=== PATIENT | female | born 1985 | race American Indian/Alaskan Native ===

== ENCOUNTER 2021-11-21 17:39 | Emergency (ER) | payer OTHER ==
--- NOTE | 2021-11-21 20:23 | XRay Report ---
XR chest routine 2V INDICATION / CLINICAL INFORMATION: sob and fever. COMPARISON: None available. FINDINGS: Findings in the chest are accentuated by body habitus and phase of inspiration. SUPPORT DEVICES: None. HEART /PULMONARY VASCULATURE: No significant abnormality. LUNGS / PLEURA: No acute pulmonary or pleural abnormality. No pneumothorax. ADDITIONAL FINDINGS: No significant additional findings. IMPRESSION: 1. No acute findings. Signer Name: Suleman Oconnell MD Signed: 11/21/2021 8:18 PM Workstation Name: [id number]
[2021-11-22 06:09] LABS: Bilirubin,Urine NEG (Negative); Blood,Urine MOD (Negative); Color,Urine Yellow (Yellow)
[2021-11-22 06:13] LABS: Bacteria,Urine 1+ /HPF (Negative); Mucus,Urine 1+ /HPF
[2021-11-22 06:19] LABS: Alanine Aminotransferase 8 units/L (7-56); Albumin 3.9 g/dL (3.9-5); BUN/Creatinine Ratio 8; Blood Urea Nitrogen 8 mg/dL (7-17); Calcium 8.9 mg/dL (8.4-10.2); Hemolysis Index 3
[2021-11-22 07:50] LABS: Basophils # (Auto) 0.1 K/mm3 (0.0-0.1); Basophils % (Auto) 0.5 % (0.0-1.8); Eosinophils # (Auto) 0.1 K/mm3 (0.0-0.4); Eosinophils % (Auto) 1.4 % (0.0-4.3); Hematocrit 32.6 % (30.3-42.9); Hemoglobin 10.3 gm/dl (10.1-14.3); Lymphocytes # (Auto) 2.2 K/mm3 (1.2-5.4); Lymphocytes % (Auto) 22.5 % (13.4-35.0); Mean Corpuscular HGB Conc 32 % (30-34); Mean Corpuscular Volume 77 fl (79-97); Monocytes # (Auto) 0.7 K/mm3 (0.0-0.8); Monocytes % (Auto) 6.5 % (0.0-7.3); Platelet Count 362 K/mm3 (140-440); Red Blood Count 4.27 M/mm3 (3.65-5.03); Red Cell Distribution Width 16.9 % (13.2-15.2)
--- NOTE | 2021-11-22 07:55 | Cat Scan Report ---
CT ABDOMEN AND PELVIS WITHOUT CONTRAST INDICATION / CLINICAL INFORMATION: r/o obstruction renal stone. TECHNIQUE: Axial CT images were obtained through the abdomen and pelvis without IV contrast. All CT scans at this location are performed using CT dose reduction for ALARA by means of automated exposure control. COMPARISON: None available. FINDINGS: LOWER CHEST: No significant abnormality. LIVER: No significant abnormality. GALLBLADDER: No significant abnormality. BILE DUCTS: No significant abnormality. PANCREAS: No significant abnormality. SPLEEN: No significant abnormality. ADRENALS: No significant abnormality. RIGHT KIDNEY / URETER: Absent. LEFT KIDNEY / URETER: No significant abnormality. STOMACH / SMALL BOWEL: No significant abnormality. COLON: No significant abnormality. APPENDIX: Nonvisualized. PERITONEUM: No free fluid. No free air. No fluid collection. LYMPH NODES: No significant adenopathy. VASCULAR STRUCTURES: No significant abnormality. URINARY BLADDER: No significant abnormality. REPRODUCTIVE ORGANS: Probable small cyst left ovary. ADDITIONAL FINDINGS: None. SKELETAL SYSTEM: No significant abnormality. IMPRESSION: 1. Negative for obstruction or localized inflammation. 2. Previous right nephrectomy. 3. Probable small cyst left ovary. Signer Name: Praneeth Price MD Signed: 11/22/2021 7:50 AM Workstation Name: [id number]
[2021-11-22] MEDS ORDERED: PROPRANOLOL 10 MG TAB PO ONE (08:04)
[2021-11-22] MEDS ORDERED: SODIUM CHLORIDE 0.9% 1000 ML 1,000 ML IV ONE (08:16)
[2021-11-22] MEDS ORDERED: MORPHINE 4 MG/1 ML INJ IV ONE (08:16)
[2021-11-22] MEDS ORDERED: ONDANSETRON 4 MG/2 ML INJ IV ONE (08:16)
[2021-11-22] MEDS ORDERED: PROPRANOLOL 40 MG TAB PO SCH (08:30)
--- NOTE | 2021-11-22 08:54 | Emergency Department Report ---
ED General Adult HPI - General Chief complaint: Upper Respiratory Infection Stated complaint: SEVER ABDOMINAL PAIN, NUMBNESS IN FINGERS Time Seen by Provider: 11/22/21 07:23 Source: patient Mode of arrival: Ambulatory Limitations: No Limitations - History of Present Illness Initial comments: 35-year-old female past medical history of a brain cyst diagnosed in , endometriosis, PCOS, renal disease "born with 1 kidney" and a heart murmur. Patient reports to the ER with complaints of abdominal pain all over with nausea and vomiting that started yesterday around 10 AM. Patient states that initially when she came to the ER her pain was a 10 out of 10 the pain has now decreased to 6 out of 10. Patient denies diarrhea. Patient also reports that headache reports she has not taken her propanolol 80 mg today for her migraines. Patient denies chest pain, shortness of breath, weakness, dizziness. No other acute concerns at this time. Severity scale (0 -10): 9 - Related Data Previous Rx's Medication Instructions Recorded Last Taken Type Cefuroxime Axetil [Cefuroxime] 500 mg PO BID 7 Days #14 tab 11/22/21 Unknown Rx Ondansetron [Zofran Odt] 4 mg PO Q12HR PRN 4 Days #8 11/22/21 Unknown Rx tab.rapdis traMADoL [Ultram 50 MG tab] 50 mg PO Q6HR PRN 3 Days #10 tablet 11/22/21 Unknown Rx Allergies Allergy/AdvReac Type Severity Reaction Status Date / Time iodine Allergy Anaphylaxis Verified 11/21/21 18:27 shellfish derived Allergy Anaphylaxis Verified 11/21/21 18:26 ED Review of Systems ROS: Stated complaint: SEVER ABDOMINAL PAIN, NUMBNESS IN FINGERS Other details as noted in HPI Comment: All other systems reviewed and negative Gastrointestinal: abdominal pain, nausea, vomiting. denies: diarrhea, constipation, hematemesis ED Past Medical Hx - Past Medical History Previous Medical History?: Yes Hx Renal Disease: Yes Hx Headaches / Migraines: Yes (migraine) Additional medical history: brain cyst, heart murmur, endometriosis, PCOS, - Surgical History Additional Surgical History: 9 [employer] SX, hernia repair - Social History Smoking Status: Never Smoker - Medications Home Medications: Home Medications Medication Instructions Recorded Confirmed Last Taken Type Cefuroxime Axetil [Cefuroxime] 500 mg PO BID 7 Days #14 tab 11/22/21 Unknown Rx Ondansetron [Zofran Odt] 4 mg PO Q12HR PRN 4 Days #8 11/22/21 Unknown Rx tab.rapdis traMADoL [Ultram 50 MG tab] 50 mg PO Q6HR PRN 3 Days #10 tablet 11/22/21 Unknown Rx ED Physical Exam - General Limitations: No Limitations General appearance: alert, in no apparent distress - Head Head exam: Present: atraumatic, normocephalic - Eye Eye exam: Present: normal appearance - ENT ENT exam: Present: mucous membranes moist - Neck Neck exam: Present: normal inspection - Respiratory Respiratory exam: Present: normal lung sounds bilaterally. Absent: respiratory distress - Cardiovascular Cardiovascular Exam: Present: regular rate, normal rhythm. Absent: systolic murmur, diastolic murmur, rubs, gallop - GI/Abdominal GI/Abdominal exam: Present: soft, tenderness, diminished bowel sounds, other (No acute abdominal signs.). Absent: distended, rebound, rigid - Extremities Exam Extremities exam: Present: normal inspection - Back Exam Back exam: Present: normal inspection - Neurological Exam Neurological exam: Present: alert, oriented X3 - Psychiatric Psychiatric exam: Present: normal affect, normal mood - Skin Skin exam: Present: warm, dry, intact, normal color. Absent: rash ED Course Vital Signs 11/21/21 11/22/21 11/22/21 18:19 05:29 09:41 Temperature 100.6 F H 98.5 F Pulse Rate 88 92 H 62 Respiratory 22 19 Rate Blood Pressure 151/87 135/74 Blood Pressure 116/58 [Left] O2 Sat by Pulse 100 95 Oximetry 11/22/21 11/22/21 10:53 12:08 Temperature 98.9 F Pulse Rate 59 L 56 L Respiratory 14 14 Rate Blood Pressure Blood Pressure 139/59 131/72 [Left] O2 Sat by Pulse 100 96 Oximetry ED Medical Decision Making - Lab Data Result diagrams: 11/22/21 05:24 11/22/21 05:24 - Radiology Data chest - IMPRESSION: 1. No acute findings. ct abdominal/ pelvic - IMPRESSION: 1. Negative for obstruction or localized inflammation. 2. Previous right nephrectomy. 3. Probable small cyst left ovary. Abdominal U/S - IMPRESSION: 1. No significant sonographic abnormality of the right upper quadrant. pelvis US - IMPRESSION: Limited difficult exam by the technologist. 2 simple appearing left ovarian cysts are identified as described. There is suggestion of complex thickening or mass lesion in the lower uterine segment or possibly the endocervical canal as described above. Although this may represent blood products, A mass lesion or endometrioma is difficult to exclude. Given the complex history of this patient, further evaluation with MRI pelvis with and without contrast should be considered. - Medical Decision Making 35-year-old female past medical history of a brain cyst diagnosed in , endometriosis, PCOS, renal disease "born with 1 kidney" and a heart murmur. Patient reports to the ER with complaints of abdominal pain all over with nausea and vomiting that started yesterday around 10 AM. Patient states that initially when she came to the ER her pain was a 10 out of 10 the pain has now decreased to 6 out of 10. Patient denies diarrhea. Patient also reports that headache reports she has not taken her propanolol 80 mg today for her migraines. Patient denies chest pain, shortness of breath, weakness, dizziness. No other acute concerns at this time. On physical exam there is abdominal tenderness with lower abdominal pain and greatest pain and compared to upper abdominal pain. No acute abdominal signs noted on physical exam. Bowels are hypoactive. No pulsating mass no organ enlargement noted. CT was ordered, ultrasound, blood work. Pain medicine and Zofran medicine ordered. Propanolol 80 mg was ordered for patient's headache per patient's request. Patient reports feeling better after receiving IV medication. Patient reports increasing pains around a 4 out of 10. Patient updated on her CT and ultrasound results and below work. Patient reports that she is aware that she does have a cyst on her ovaries. 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 Patient agrees with plan of care and verbalized understanding. Patient stable for discharge home. Patient informed that if symptoms continue or worsen to report back to the ER. Labs 11/22/21 11/22/21 11/22/21 05:24 05:24 05:31 WBC 10.0 RBC 4.27 Hgb 10.3 Hct 32.6 MCV 77 L MCH 24 L MCHC 32 RDW 16.9 H Plt Count 362 Lymph % (Auto) 22.5 [place] % (Auto) 6.5 Eos % (Auto) 1.4 Baso % (Auto) 0.5 Lymph # (Auto) 2.2 [place] # (Auto) 0.7 Eos # (Auto) 0.1 Baso # (Auto) 0.1 Seg Neutrophils % 69.1 Seg Neutrophils # 6.9 Sodium 138 Potassium 3.8 Chloride 102.2 Carbon Dioxide 25 Anion Gap 15 BUN 8 Creatinine 1.0 Estimated GFR > 60 BUN/Creatinine Ratio 8 Glucose 108 H Calcium 8.9 Total Bilirubin 0.90 AST 12 ALT 8 Alkaline Phosphatase 66 Total Protein 7.6 Albumin 3.9 Albumin/Globulin Ratio 1.1 Lipase 19 Urine Color Yellow Urine Turbidity Slightly-cloudy Urine pH 5.0 Ur Specific [place] 1.025 Urine Protein 30 mg/dl Urine Glucose (UA) Neg Urine Ketones Neg Urine Blood Mod Urine Nitrite Neg Urine Bilirubin Neg Urine Urobilinogen 2.0 Ur Leukocyte Esterase Mod Urine WBC (Auto) 10.0 H Urine RBC (Auto) 35.0 U Epithel Cells (Auto) 25.0 H Urine Bacteria (Auto) 1+ Urine Mucus 1+ Vital Signs 11/21/21 11/22/21 11/22/21 18:19 05:29 09:41 Temperature 100.6 F H 98.5 F Pulse Rate 88 92 H 62 Respiratory 22 19 Rate Blood Pressure 151/87 135/74 Blood Pressure 116/58 [Left] O2 Sat by Pulse 100 95 Oximetry 11/22/21 11/22/21 10:53 12:08 Temperature 98.9 F Pulse Rate 59 L 56 L Respiratory 14 14 Rate Blood Pressure Blood Pressure 139/59 131/72 [Left] O2 Sat by Pulse 100 96 Oximetry Critical care attestation.: If time is entered above; I have spent that time in minutes in the direct care of this critically ill patient, excluding procedure time. ED Disposition Clinical Impression: Acute lower UTI, Cyst of ovary, left Abdominal pain Qualifiers: Abdominal location: lower abdomen, unspecified Qualified Code(s): R10.30 - Lower abdominal pain, unspecified Disposition: 01 HOME / SELF CARE / HOMELESS Is pt being admited?: No Condition: Stable Instructions: Abdominal Pain, Adult, Urinary Tract Infection, Adult, Ovarian Cyst, [id number] Prescriptions: Cefuroxime Axetil [Cefuroxime] 500 mg PO BID 7 Days #14 tab traMADoL [Ultram 50 MG tab] 50 mg PO Q6HR PRN 3 Days #10 tablet PRN Reason: Pain Ondansetron [Zofran Odt] 4 mg PO Q12HR PRN 4 Days #8 tab.rapdis PRN Reason: Nausea And Vomiting Referrals: BEKA SIMMS MD [Primary Care Provider] - 3-5 Days
--- NOTE | 2021-11-22 09:36 | Ultrasound Report ---
ULTRASOUND ABDOMEN, LIMITED INDICATION / CLINICAL INFORMATION: pelvic pain - lower abdominal pain - pubic area. COMPARISON: None available. FINDINGS: PANCREAS: Visualized portion shows no significant abnormality. LIVER: No significant abnormality. Normal hepatopedal blood flow in the main portal vein. GALLBLADDER: No significant abnormality. BILE DUCTS: No significant abnormality. Common bile duct measures 6 4 mm. FREE FLUID: None. ADDITIONAL FINDINGS: None. IMPRESSION: 1. No significant sonographic abnormality of the right upper quadrant. Signer Name: William Silvestre MD Signed: 11/22/2021 9:31 AM Workstation Name: [id number]
--- NOTE | 2021-11-22 09:39 | Ultrasound Report ---
ULTRASOUND PELVIS COMPLETE ULTRASOUND TRANSVAGINAL INDICATION / CLINICAL INFORMATION: pelvic pain. 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 Patient also reports a history of endometriosis TECHNIQUE: Transabdominal and Transvaginal. Duplex Color Doppler used: Yes. COMPARISON: CT abdomen pelvis without contrast performed earlier today FINDINGS: UTERUS: Present. - Appearance (if present): Imaging of the uterus is limited on transvaginal imaging due to body habit us. On transabdominal imaging, the uterus appears mildly enlarged and anteverted. - Size in cm (if present): 11 x 5 x 5 cm on transabdominal imaging. - Endometrial Complex (if present): The endometrial complex is poorly imaged on both transabdominal a nd transvaginal images. The endometrium appears to measure 4.8 mm on the transabdominal images. There is suggestion of complex thickening of the lower endometrium which possibly extends into the endocer vical canal. The transvaginal images demonstrate a complex hypoechoic material in the lower uterine s egment and endocervical canal measuring up to 2.6 cm in thickness. No convincing internal flow on col or Doppler imaging. May represent blood products although a mass lesion is difficult to exclude. - Additional findings: None. RIGHT ADNEXA: No significant ovarian cyst or mass. Normal color Doppler blood flow. The right ovary m easures 3.1 x 2.0 x 2.5 cm. LEFT ADNEXA: There are 2 simple appearing cysts in the left ovary measuring 1.1 cm and 1.3 cm. Normal color Doppler blood flow. The left ovary measures 2.5 x 2.1 x 1.5 cm. URINARY BLADDER: No significant abnormality. FREE FLUID: None. ADDITIONAL FINDINGS: None. IMPRESSION: Limited difficult exam by the technologist. 2 simple appearing left ovarian cysts are identified as described. There is suggestion of complex thickening or mass lesion in the lower uterine segment or possibly the endocervical canal as described above. Although this may represent blood products, A mass lesion or endometrioma is difficult to exclude. Given the complex history of this patient, further evaluation w ith MRI pelvis with and without contrast should be considered. Signer Name: Jose Elias Salinas Jr, MD Signed: 11/22/2021 9:35 AM Workstation Name: [id number]
[2021-11-22 12:09] VITALS: BP 131/72
== END 2021-11-22 12:08 | disposition home or self-care (01) ==
LOC: ED 17:39
DX: N39.0 Urinary tract infection, site not specified (principal); N83.202 Unspecified ovarian cyst, left side; R10.9 Unspecified abdominal pain; N28.9 Disorder of kidney and ureter, unspecified; G43.909 Migraine, unspecified, not intractable, without status migrainosus; Z91.013 Allergy to seafood; Z91.09 Other allergy status, other than to drugs and biological substances; Z79.899 Other long term (current) drug therapy
CPT/HCPCS: 36415; 71046; 74176; 76705; 76830; 76856; 80053; 81001; 83690; 85025; 87086; 96361; 96374; 96375; 99284; J2270; J2405; J7030